=== PATIENT | female | born 1990 | race Caucasian/White ===

== ENCOUNTER 2022-07-05 08:57 | Emergency (ER) | payer BC, SELFPAY ==
--- NOTE | ~2022-07-05 | XR_ITS ---
EXAMINATION: XR FOOT, LEFT CLINICAL INFORMATION: Injury COMPARISON: None TECHNIQUE: 3 views of the left foot. XR/XR foot LT 2V FINDINGS AND IMPRESSION: Bones have normal alignment. Acute, comminuted intra-articular fracture at the base of the fifth metatarsal is nondisplaced. Otherwise, the metatarsals and phalanges are unremarkable. Joint spaces are maintained throughout the foot. Soft tissues appear to be mildly swollen at the site of fifth metatarsal fracture.
[2022-07-05 10:01] VITALS: BP 124/80; PULSE 88; RESP 18; TEMP 36.8; O2SAT 94; BMI 24.7
--- NOTE | 2022-07-05 10:23 | ED.LOWEXIN ---
HPI - Extremity Injury (Lower) General Chief Complaint: Extremity Injury, Lower Stated Complaint: L Foot Injury 07/05/22 Stomach Pain Time Seen by Provider: 07/05/22 10:23 Source: patient Mode of arrival: ambulatory Limitations: no limitations History of Present Illness HPI Narrative: 31 yo female presents to the ER for evaluation after she fell down 6 stairs today at home at 6:30 am. She states her left foot slipped on the stair, inverted and she fell down the bottom 6 wooden stairs in her home. She states had immediate pain and swelling in the left foot and was unable to bear weight. Her helped her to the bathroom where she had stomach pain and vomited. She states this happens to her often. She denies any current abdominal pain or nausea. MD complaint: foot injury Onset (ago): hour(s) (4) Injury: Left: foot Type of Injury: inversion Place: home Severity: severe Severity scale (1-10): 10 Relieving factors: cold therapy, immobilization and rest Exacerbating factors: weight bearing and movement Context: fall Associated symptoms: swelling and unable to bear weight Other symptoms: none Related Data Previous Rx's Medication Instructions Recorded hydrocodone 5 mg-acetaminophen 325 1 tab PO Q8H PRN severe pain 07/05/22 mg tablet (scale score 7-10) #8 tabs ibuprofen 600 mg tablet 600 mg PO Q8H PRN pain #20 tabs 07/05/22 Allergies Allergy/AdvReac Type Severity Reaction Status Date / Time Unable to Assess Allergy Verified 07/05/22 09:55 Review of Systems Review of Systems: Constitutional: No Fever, No Chills Cardiovascular: No Chest Pain, No SOB, Gastrointestinal: + Nausea, + Vomiting, No Diarrhea, +abdominal Pain Genitourinary: No Dysuria, No Urinary Frequency, No Hematuria Musculoskeletal: + joint pain, No Myalgias Skin: No Skin Lesions, No rash Neuro: No Weakness, No Numbness, No Dizziness, No Headache Psych: + Anxiety/Panic, No Depression Heme/Lymph: No Bruising, No Lymphadenopathy PMFSH Social History Social History Advance Directives: No Advance Directives Information Provided: No Physical Exam Vital Signs: Vital Signs: Last Vital Signs Temp 98.3 F 07/05/22 10:01 Pulse 88 07/05/22 10:01 Resp 18 07/05/22 10:01 BP 124/80 07/05/22 10:01 Pulse Ox 94 07/05/22 10:01 O2 Del Method 07/05/22 10:01 BMI result Body Mass Index 24.7 Appearance: Alert. Oriented X3. No acute distress. HEENT: normal inspection CVS: Normal heart rate and rhythm. Pulses normal. Respiratory: No respiratory distress. Speaks in complete sentences Skin: Skin warm and dry. Normal skin color. Normal skin turgor. No rashes. Extremities: left lateral foot with moderate area of swelling, early ecchymosis. No open wounds mild tenderness associated. Normal range of motion of the digits. Cap refill less than 3 seconds. Foot is cool with 2+ DP and PT pulses. Neuro: Oriented X 3. No motor deficit. No sensory deficit. Gait not tested due to pain Course Course Course Narrative: 31-year-old female presents to the ER for evaluation of left lateral foot pain after a fall down 6 stairs this morning. She has a ?bump? on the lateral aspect of her left foot over the area of the 5th metatarsal. X-ray is pending. She is neurovascularly intact Reevaluation(s) Reevaluation #1: X-rays showing Bones have normal alignment. Acute, comminuted intra-articular fracture at the base of the fifth metatarsal is nondisplaced. Otherwise, the metatarsals and phalanges are unremarkable. Joint spaces are maintained throughout the foot. Soft tissues appear to be mildly swollen at the site of fifth metatarsal fracture. Case discussed with Marti from Orthopedics. She is to be nonweightbearing. She was placed in a walking boot and is tolerating it well. She understands that she needs to be nonweightbearing and will use crutches. She will follow-up with orthopedics next week. Pain control medications sent to the pharmacy. Comfortable discharge home with outpatient follow-up. Workup provided per request. Medical Decision Making Medical Decision Making Independent interpretation of EKG, rhythm strip, radiology study: Independent interp EKG,rhythm strip, radiology study I performed an independent interpretation of the: Plain X-Ray My interpretation is [place] fracture Discharge Plan Discharge Clinical Impression: Closed fracture of fifth metatarsal bone of left foot Patient Disposition: Home, Self-Care Instructions: Foot Fracture in Adults (ED) Additional Instructions: Use the provided crutches and do not bear any weight with your left foot. Follow up with Orthopedics next week - name and number below, call for an appointment. Take the prescribed medications as directed. X-RAY: Bones have normal alignment. Acute, comminuted intra-articular fractureat the base of the fifth metatarsal is nondisplaced. Otherwise, the metatarsals and phalanges are unremarkable. Joint spaces are maintained throughout the foot. Soft tissues appear to be mildly swollen at the site of fifth metatarsal fracture. Prescriptions: New ibuprofen 600 mg tablet 600 mg PO Q8H PRN (Reason: pain) Qty: 20 0RF hydrocodone-acetaminophen 5-325 mg tablet 1 tab PO Q8H PRN (Reason: severe pain (scale score 7-10)) Qty: 8 0RF Rx Instructions: Partial Fill upon patient request. Referrals: [facility] [place] [facility] [Provider Group] Stand Alone Forms: Work/School Release
[2022-07-05 10:45] LABS: Appearance Urine Clear; Color Urine Yellow; Glucose Urine UA Negative (Negative); Leukocyte Esterase Urine Negative (Negative); Nitrite Urine Negative (Negative); Urine Blood Negative (Negative); Urine Ketones 40 mg/dL (Negative); Urine Protein Negative (Neg-Trace)
[2022-07-05 10:46] LABS: UPreg QC Valid YES; Urine Pregnancy NEGATIVE (NEGATIVE)
== END 2022-07-05 12:34 | disposition home or self-care (01) ==
PROVIDERS: Physician Assistant Medical; Emergency Provider Emergency Medicine Emergency Medical Services
DX: S92.352A Displaced fracture of fifth metatarsal bone, left foot, initial encounter for closed fracture (principal); M79.672 Pain in left foot; W10.9XXA Fall (on) (from) unspecified stairs and steps, initial encounter; Y93.9 Activity, unspecified; Y92.9 Unspecified place or not applicable; Y99.9 Unspecified external cause status; Z20.822 Contact with and (suspected) exposure to COVID-19; Z79.899 Other long term (current) drug therapy
CPT/HCPCS: 73620; 81003; 81025; 99282; 99283

== ENCOUNTER 2023-09-23 18:27 | Emergency (ER) | payer BC, SELFPAY ==
--- NOTE | ~2023-09-23 | XR_ITS ---
EXAMINATION: XR CHEST CLINICAL INFORMATION: Dyspnea COMPARISON: None available. TECHNIQUE: Frontal view of the chest was obtained. FINDINGS: No focal consolidation. No pneumothorax. Trachea is midline. Cardiac mediastinal silhouette is not enlarged. No large pleural effusion. Osseous structures are intact. Soft tissues are unremarkable. XR/XR chest 1V IMPRESSION: No acute cardiopulmonary process.
[2023-09-23 18:36] VITALS: BP 137/94; PULSE 113; RESP 20; TEMP 36.7; O2SAT 98; BMI 24.2
--- NOTE | 2023-09-23 19:26 | ECG_ITS ---
Test Reason : ALLERGIC REACTION Blood Pressure : / mmHG Vent. Rate : 087 BPM Atrial Rate : 087 BPM P-R Int : 138 ms QRS Dur : 078 ms QT Int : 352 ms P-R-T Axes : 060 059 050 degrees QTc Int : 423 ms Normal sinus rhythm Normal ECG No previous ECGs available Referred By: Lisa Shepard Electronically Signed By:NELY HURST
[2023-09-23 19:47] LABS: MANUAL DIFF FLAG NO
[2023-09-23 19:50] LABS: Basophils Percent Auto 0.4 % (0-2); Eosinophils Percent Auto 0.5 % (0-4); Hemoglobin 13.4 g/dl (12.0-16.0); Imm Gran Abs Auto 0.01 X10*3/uL (0.00-0.03); Imm Gran Pct Auto 0.2 % (0.0-0.4); Lymphocytes Absolute Auto 1.7 X10*3/uL (1.2-4.9); Lymphocytes Percent Auto 29.9 % (20-40); Mean Corpuscular HGB Conc 32.7 g/dl (31.0-35.0); Mean Corpuscular Hemoglobin 28.7 pg (27.0-33.0); Mean Corpuscular Volume 87.8 fL (80.0-98.0); Mean Platelet Volume 9.8 fL (9.4-12.3); Monocytes Absolute Auto 0.6 X10*3/uL (0.1-1.2); Monocytes Percent Auto 10.9 % (2-11); Neutrophils Absolute Auto 3.2 x10*3/uL (2.0-8.3); Neutrophils Percent Auto 58.1 % (45-73); Platelet Count 346 X10*3/uL (160-400); Red Blood Count 4.67 X10*6/uL (4.20-5.50); Red Cell Distribution Width 12.5 % (11.0-16.0); White Blood Count 5.5 X10*3/uL (4.8-10.8)
--- NOTE | 2023-09-23 19:50 | ED.SOB ---
HPI - SOB/Dyspnea General Chief Complaint: Allergic Reaction Stated Complaint: Diff breathing Time Seen by Provider: 09/23/23 19:15 Source: patient Mode of arrival: ambulatory Limitations: no limitations History of Present Illness HPI Narrative: 33 yo female with PMH of allergies, dry skin, asthma, hiatal hernia that was mild and not on medications who presents with c/o having COVID 2 weeks ago she is vaccinated - symptoms resolved she comes in as she has been using a soap that she thinks caused an allergic reaction on her hands and caused her to have facial / neck swelling yesterday and dyspnea that sort of improved with her INH. She comes in also with c/o upper abdominal pain that reminds her of her hiatal hernia she intermittently threw up one day - not on medications. MD elicited complaint: shortness of breath Pertinent past history: asthma Onset (ago): day(s) (2) Context: recent illness and allergen exposure Timing: intermittent Severity: mild Exacerbating factors: coughing and allergies Relieving factors: bronchodilators Known history of: asthma Associated symptoms: other (rash, abdominal pain) Treatment prior to arrival: bronchodilator Related Data Previous Rx's Medication Instructions Recorded hydrocodone 5 mg-acetaminophen 325 1 tab PO Q8H PRN severe pain 07/05/22 mg tablet (scale score 7-10) #8 tabs ibuprofen 600 mg tablet 600 mg PO Q8H PRN pain #20 tabs 07/05/22 cetirizine 10 mg tablet 10 mg PO DAILY PRN allergy 09/23/23 symptoms #30 tabs famotidine 40 mg tablet 40 mg PO DAILY #14 tabs 09/23/23 Allergies Allergy/AdvReac Type Severity Reaction Status Date / Time lifitegrast [From Xiidra] AdvReac Blurry Verified 09/23/23 18:35 Vision nortriptyline AdvReac Rash Verified 09/23/23 18:35 prednisone AdvReac Rash Verified 09/23/23 18:35 Review of Systems Review of Systems: Constitutional : No Fever, No Chills ENT/Mouth : No sore throat, No Rhinorrhea, No Swallowing Difficulty Eyes: No Eye Pain, No Swelling, No Redness Cardiovascular : No Chest Pain, positive SOB, No Orthopnea, no Edema Respiratory : No Cough, No Sputum, No Wheezing, positive dyspnea Gastrointestinal : pos Nausea, No Vomiting, No Diarrhea, pos abdominal Pain, No Hematochezia, No Melena Genitourinary : No Dysuria, No Urinary Frequency, No Hematuria Musculoskeletal : No joint pain, No Myalgias Skin : No Skin Lesions, pos rash Neuro : No Weakness, No Numbness, No Dizziness, No Headache Psych : No Anxiety/Panic, No Depression Heme/Lymph: No Bruising, No Lymphadenopathy Endocrine : No Polyuria, No Polydipsia All other systems reviewed and are negative [facility] Past Medical History Attestation statement: The following information was validated with the patient. Source: old records reviewed Medical History (Updated 09/23/23 @ 20:02 by Lisa Shepard DO) Asthma Hiatal hernia Social History Social History (Updated 09/23/23 @ 19:51 by Lisa Shepard DO) Unable to assess alcohol history related to: Unknown Patient Tobacco Use Status: Never used Tobacco Smoked in Last 30 Days: No Use of substances other than those prescribed or required for medical reasons: No Advance Directives: No Advance Directives Information Provided: No Patient : No Physical Exam Vital Signs: Vital Signs: Last Vital Signs Temp 98.0 F 09/23/23 18:36 Pulse 113 H 09/23/23 18:36 Resp 20 09/23/23 18:36 BP 137/94 H 09/23/23 18:36 Pulse Ox 98 09/23/23 18:36 O2 Del Method Room Air 09/23/23 18:36 BMI result Body Mass Index 24.2 Appearance: Alert. Oriented X3. No acute distress. Eyes: Pupils equal, round and reactive to light. ENT: Pharynx normal. no angioedema dry skin on L side of face and L side of neck no erythema and no swelling noted Neck: Normal inspection. Neck supple. CVS: Normal heart rate and rhythm. Pulses normal. Respiratory: No respiratory distress. Breath sounds normal. Abdomen: Soft and mild epigastric ttp no rebound or guarding Skin: Skin warm and dry. Normal skin color. Normal skin turgor. both hands are extremely dry and cracked Extremities: No lower extremity edema. No calf ttp Neuro: Oriented X 3. No motor deficit. No sensory deficit. Medical Decision Making Medical Decision Making MDM Narrative: 33 yo female with PMH of allergies, dry skin, asthma, hiatal hernia that was mild here with multiple complaints 1. possible allergen exposure causing rash and dyspnea 2. dyspnea post covid which needs CXR given hx of pneumonia and also ddimer along with EKG 3. upper abdominal pain that reminds her of her prior hiatal hernia - CXR and basic labs ordered will consider H2 tom. Overall she is not toxic. Her hand rash is impressive she will need aquaphor or vaseline and gloves prior to sleep Differential Diagnosis Differential Diagnoses: The differential diagnosis associated with the presentation includes allergies, asthma, VTE, pneumonia, anxiety, hiatal hernia, gastritis Admission/Observation Consideration of admission/observation: Escalation of care including admission/observation considered Lab Data [facility] Lab Attestation statement: I reviewed the patient's lab results. 09/23/23 19:43 09/23/23 19:43 Labs: Lab Results 09/23/23 Range/Units 19:43 WBC 5.5 (4.8-10.8) X10*3/uL RBC 4.67 (4.20-5.50) X10*6/uL Hgb 13.4 (12.0-16.0) g/dl Hct 41.0 (37.0-47.0) % MCV 87.8 (80.0-98.0) fL MCH 28.7 (27.0-33.0) pg MCHC 32.7 (31.0-35.0) g/dl RDW 12.5 (11.0-16.0) % Plt Count 346 (160-400) X10*3/uL MPV 9.8 (9.4-12.3) fL Immature Gran % (Auto) 0.2 (0.0-0.4) % Neut % (Auto) 58.1 (45-73) % Lymph % (Auto) 29.9 (20-40) % [place] % (Auto) 10.9 (2-11) % Eos % (Auto) 0.5 (0-4) % Baso % (Auto) 0.4 (0-2) % Lymph # (Auto) 1.7 (1.2-4.9) X10*3/uL [place] # (Auto) 0.6 (0.1-1.2) X10*3/uL Eos # (Auto) 0.0 (0.0-0.4) X10*3/uL Baso # (Auto) 0.0 (0.0-0.2) X10*3/uL Abs Immat Gran (auto) 0.01 (0.00-0.03) X10*3/uL Absolute Neuts (auto) 3.2 (2.0-8.3) x10*3/uL Absolute Nucleated RBC 0.000 (0.0-0.012) X10*3/uL Nucleated RBC % (auto) 0.0 (0.0-0.2) /100WBC D-Dimer High Sensitivty < 150 NG/ML Sodium 144 (135-145) mmol/L Potassium 3.9 (3.3-5.1) mmol/L Chloride 110 H (96-108) mmol/L Carbon Dioxide 27 (22-29) mmol/L Anion Gap 11 L (12-20) BUN 10 (9-16) mg/dL Creatinine 0.80 (0.5-1.4) mg/dL Estim Creat Clear Calc 93.6 Estimated GFR > 60 Random Glucose 97 (60-115) mg/dL Calcium 9.0 (8.4-10.2) mg/dL Magnesium 2.1 (1.6-2.6) mg/dL Total Bilirubin 0.2 (0.0-1.0) mg/dL Direct Bilirubin < 0.2 (0.0-0.5) mg/dL AST 16 (5-31) U/L ALT 11 (0-31) U/L Alkaline Phosphatase 55 (39-117) U/L Total Protein 7.3 (6.5-8.0) g/dL Albumin 4.1 (3.5-5.0) g/dL Lipase 39 (8-78) U/L Independent Interpretation I performed an independent interpretation of an: EKG and Plain X-Ray Interpretation: Rate: 87 Rhythm: NSR [place]: normal Normal P waves. Normal HERNANDEZ. Normal QRS complex. ST T wave : normal no NIXON qTC: 423 prior studies: no acute ischemia The study has been interpreted contemporaneously by me. . Radiology Impression Discussion of test interpretation with radiology: I have reviewed the radiologist's reading. Independent Historian Clinical information obtained from an independent historian. History obtained from or confirmed by: Spouse Prescription Management I considered prescription management with: Other Discharge Plan Discharge Clinical Impression: Allergic reaction Qualifiers: Encounter type: initial encounter Qualified Code(s): T78.40XA - Allergy, unspecified, initial encounter Contact dermatitis Qualifiers: Contact dermatitis type: irritant Contact dermatitis trigger: unspecified trigger Qualified Code(s): L24.9 - Irritant contact dermatitis, unspecified cause Gastritis Qualifiers: Gastritis type: unspecified gastritis Chronicity: acute Gastritis bleeding: without bleeding Qualified Code(s): K29.00 - Acute gastritis without bleeding Patient Disposition: Home, Self-Care Instructions: Gastritis (ED), Contact Dermatitis (ED), General Allergic Reaction (ED) Additional Instructions: labs reassuring, EKG and chest xray reassuring, negative test for blood clots. at this time would use aquaphor or vaseline on hands then wear gloves to bed. suspect a form of gastritis causing pain. use pepcid for the next two weeks to heal stomach. follow up with GI doctor listed below. for allergy symptoms can take zyrtec could avoid prednisone as it is going to worsen your stomach issues. Prescriptions: New famotidine 40 mg tablet 40 mg PO DAILY Qty: 14 0RF cetirizine 10 mg tablet 10 mg PO DAILY PRN (Reason: allergy symptoms) Qty: 30 0RF No Action ibuprofen 600 mg tablet 600 mg PO Q8H PRN (Reason: pain) Qty: 20 0RF hydrocodone-acetaminophen 5-325 mg tablet 1 tab PO Q8H PRN (Reason: severe pain (scale score 7-10)) Qty: 8 0RF Rx Instructions: Partial Fill upon patient request. Referrals: Isauro Kenney MD [Physician] - (call to schedule appointment)
[2023-09-23 20:01] LABS: D Dimer High Sensitivity < 150 NG/ML
[2023-09-23 20:03] LABS: Alanine Aminotransferase 11 U/L (0-31); Albumin Level 4.1 g/dL (3.5-5.0); Alkaline Phosphatase 55 U/L (39-117); Anion Gap 11 (12-20); Aspartate Amino Transferase 16 U/L (5-31); Bilirubin Direct < 0.2 mg/dL (0.0-0.5); Bilirubin Total 0.2 mg/dL (0.0-1.0); Blood Urea Nitrogen 10 mg/dL (9-16); Carbon Dioxide 27 mmol/L (22-29); Chloride 110 mmol/L (96-108); Creatinine Clr Calc Pharmacy 93.6; Estimated Glomerular Filt Rate > 60; Glucose Random 97 mg/dL (60-115); Lipase 39 U/L (8-78); Magnesium 2.1 mg/dL (1.6-2.6); Potassium 3.9 mmol/L (3.3-5.1); Sodium 144 mmol/L (135-145); Total Protein 7.3 g/dL (6.5-8.0)
[2023-09-23 20:48] VITALS: PULSE 86; O2SAT 98
== END 2023-09-23 20:50 | disposition home or self-care (01) ==
PROVIDERS: Emergency Provider Emergency Medicine
DX: L24.9 Irritant contact dermatitis, unspecified cause (principal); R06.02 Shortness of breath; R05.9 Cough, unspecified; K29.00 Acute gastritis without bleeding; R22.1 Localized swelling, mass and lump, neck; Z79.899 Other long term (current) drug therapy
CPT/HCPCS: 36415; 71045; 80048; 80076; 83690; 83735; 85025; 85379; 93005; 99283; 99284

== ENCOUNTER → 2023-09-23 19:26 | Outpatient (BNV) | payer BC, SELFPAY | PROVIDERS: Emergency Provider Emergency Medicine; Visit Provider Internal Medicine | DX: R06.00 Dyspnea, unspecified (principal) | CPT/HCPCS: 93010 ==